=== PATIENT | female | born 1950 | race Caucasian/White ===

== ENCOUNTER → 2017-10-27 | Outpatient (CLI) | payer OTHER ==
[~2017-10-27] VITALS: Ht 167.6 cm; Wt 97.1 kg
[~2017-10-27] MED LIST: ALBUTEROL2.5 MG/31 INH; COUMADIN 5 MG TA5 M1 PO; CRESTOR20 MG PO; DEMADEX20 MG PO; DULERA 200 MCG/13 GM INH; HUMALOG KW100 UNIT/1 SUBQ; LISINOPRIL40 MG PO; LOPRESSOR100 M1 PO; MAGOX 400400 MG PO; ORENITRAM PO; SINGULAIR 10 MG10 M1 PO; TRESIBA FL200 UNIT/1 SUBQ; VENTOLIN HFA 1818 GM INH
--- NOTE | ~2017-10-27 | P ---
[facility] [place] [address] PROCEDURE REPORT Name: LEANNE CLEVELAND Room #: REG [facility]#: [id number] Admission: 10/27/17 Attend Phys: Luis A Patel Discharge: Date of : 54 Report #: [id number] THIS REPORT FOR: //name// CC: Luis A Parker DATE OF SERVICE: 10/27/2017 PROCEDURE PERFORMED: Colonoscopy with polypectomies. HISTORY OF PRESENT ILLNESS: The patient is a 67-year-old female who had colon polyps on colonoscopy in February 2012. She is here for routine followup. She also has a family history of colon cancer. Plan is for colonoscopy. PROCEDURE: The risks and benefits of the procedure were explained to the patient, those risks including, but not limited to bleeding, perforation, and the risk of sedation. She understood these risks and gave informed consent. Sedation was given using propofol per anesthesia. Next, a digital rectal exam was initially performed, which was normal. Next, using a standard Olympus colonoscope, the scope was placed in the patient's anus and advanced under direct vision to the cecum. The overall prep was good. The cecum and ileocecal valve were normal in appearance. The ascending colon was normal in appearance. In the transverse colon, there were 2 polyps noted, both were 5-6 mm in size, both were removed by snare cautery, otherwise normal. Descending colon was normal. Multiple small diverticula were noted in the sigmoid colon, also noted there was one 3-mm sessile polyp, removed with cold forceps. In the rectum, the mucosa was normal. On retroflexion, small nonbleeding internal hemorrhoids were noted. The scope was then withdrawn and the procedure terminated. The patient tolerated the procedure well. IMPRESSION: 1. Three small colonic polyps. 2. Sigmoid diverticulosis. 3. Internal hemorrhoids. 4. Otherwise, normal colonoscopy. RECOMMENDATIONS: 1. Await biopsy results. 2. Repeat colonoscopy in [address] [address] PROCEDURE REPORT Name: CLEVELANDLEANNE Gallo Room #: REG [facility]#: [id number] Admission: 10/27/17 Attend Phys: Luis A Patel Discharge: Date of : 54 Report #: [id number] Thank you for allowing me to participate in her care. By: [id number] Luis A Santiago MD /nt
--- NOTE | ~2017-10-27 | P ---
[facility] [place] [address] PROCEDURE REPORT Name: LEANNE CLEVELAND Room #: REG [facility]#: [id number] Admission: 10/27/17 Attend Phys: Luis A Patel Discharge: Date of : 54 Report #: [id number] THIS REPORT FOR: //name// CC: Luis A Parker DATE OF SERVICE: 10/27/2017 PROCEDURE PERFORMED: Upper endoscopy. HISTORY OF PRESENT ILLNESS: The patient is a 67-year-old female with a history of intermittent heartburn symptoms and taking Zantac, which has been helpful. Plan is for upper endoscopy. PROCEDURE: The risks and benefits of the procedure were explained to the patient, those risks including, but not limited to bleeding, perforation, and the risk of sedation. She understood these risks and gave informed consent. Sedation was given using propofol per anesthesia. Next, using a standard Olympus upper endoscope, the scope was placed in the patient's mouth and advanced under direct vision through the esophagus, stomach and into the second portion of the duodenum. The upper and mid esophagus were normal in appearance. In the distal esophagus at the GE junction, grade A mild erosive esophagitis was noted. No evidence of Vee's esophagus. Overall, the gastric mucosa was normal. The pylorus was normal and patent. The duodenal bulb, first and second portion were all normal. The scope was then withdrawn and the procedure terminated. The patient tolerated the procedure well. IMPRESSION: 1. Mild grade A erosive esophagitis. 2. Otherwise, normal upper endoscopy. RECOMMENDATIONS: Consider daily PPI therapy instead of Zantac. Thank you for allowing me to participate in her care. By: [id number] Luis A Santiago MD /nt
[2017-10-27 09:30] LABS: PROTIME 10.5 Seconds (9.3-11.4)
== END | disposition home or self-care (01) ==
LOC: GI 07:36
PROVIDERS: Specialist
DX: Z12.11 Encounter for screening for malignant neoplasm of colon (principal); Z86.010 Personal history of colon polyps; Z80.0 Family history of malignant neoplasm of digestive organs; K64.8 Other hemorrhoids; K57.30 Diverticulosis of large intestine without perforation or abscess without bleeding; K63.5 Polyp of colon; K22.10 Ulcer of esophagus without bleeding; I10 Essential (primary) hypertension; E78.5 Hyperlipidemia, unspecified; Z98.890 Other specified postprocedural states; E11.9 Type 2 diabetes mellitus without complications; Z79.4 Long term (current) use of insulin; Z68.34 Body mass index [BMI] 34.0-34.9, adult; K21.9 Gastro-esophageal reflux disease without esophagitis
CPT/HCPCS: 62110; 62900